=== PATIENT | female | born 1995 | race Caucasian/White ===

== ENCOUNTER 2025-03-13 17:17 | Emergency (ER) | payer BC ==
[~2025-03-13] VITALS: Ht 160 cm; Wt 68.0 kg
[2025-03-13 17:25] VITALS: TEMP 100.6
[2025-03-13 18:12] LABS: CORONAVIRUS COVID-19 AG NEGATIVE (NEGATIVE); INFLUENZA A AG NEGATIVE (NEGATIVE); INFLUENZA B AG NEGATIVE (NEGATIVE)
[2025-03-13] MEDS: IBUPROFEN 600 MG TAB PO STA (18:21)
[2025-03-13] MEDS: ACETAMINOPHEN 325 MG TAB PO ONE (18:21)
[2025-03-13 18:30] VITALS: PULSE 92; RESP 18; O2SAT 100
[2025-03-13 18:45] VITALS: TEMP 100.4
[2025-03-13] MEDS ORDERED: ONDANSETRON ODT4 MG PO (18:49)
[2025-03-13] MEDS ORDERED: ZITHROMAX500 MG PO (18:49)
== END 2025-03-13 18:59 | disposition home or self-care (01) ==
LOC: ER 18:33
DX: R05.9 Cough, unspecified (principal); R09.89 Other specified symptoms and signs involving the circulatory and respiratory systems; H92.03 Otalgia, bilateral; R09.81 Nasal congestion; F41.9 Anxiety disorder, unspecified; F32.A Depression, unspecified; Z11.52 Encounter for screening for COVID-19
CPT/HCPCS: 83518; 87070; 99283